=== PATIENT | female | born 1950 | race Caucasian/White ===

== ENCOUNTER → 2017-04-17 | Outpatient (CLI) | payer OTHER ==
[~2017-04-17] MED LIST: ASPEC81 PO; CHOL100010 PO; CLC100 PO; CLTP PO; CMD2 PO; MEGA RED PO; OXYC-57 PO
== END | disposition home or self-care (01) ==
LOC: C.RDSM 16:54
PROVIDERS: ATTEND Physical Medicine & Rehabilitation Sports Medicine
DX: Z96.652 Presence of left artificial knee joint (principal)